=== PATIENT | male | born 1970 | race Caucasian/White ===

== ENCOUNTER 2018-11-06 11:03 | Day surgery (SDC) | payer OTHER ==
[2018-10-30 16:59] VITALS: BMI 35.2
[2018-11-06] MEDS ORDERED: ROPIVACAINE HCL 0.5% 30ML VIAL ONE (11:46)
[2018-11-06] MEDS ORDERED: MIDAZOLAM HCL 2 MG/2 ML SINGLE DOSE VIAL ONE (11:46)
[2018-11-06] MEDS ORDERED: LIDOCAINE HCL/PF 2% SDV 5ML VIAL ONE (11:54)
[2018-11-06] MEDS ORDERED: DEXAMETHASONE SOD PHOSPHATE 4 MG/1 ML VIAL ONE (11:54)
[2018-11-06] MEDS ORDERED: ONDANSETRON 4 MG/2 ML VIAL ONE (11:54)
[2018-11-06] MEDS ORDERED: PROPOFOL 20 ML ONE ×2 (11:54→13:42)
[2018-11-06] MEDS ORDERED: ceFAZolin SODIUM 1 GM VIAL ONE (12:27)
[2018-11-06 14:49] VITALS: TEMP 97.9
[2018-11-06 15:15] VITALS: BP 125/79; PULSE 80
[2018-11-06] MEDS ORDERED: ONDANSETRON 4 MG/2 ML VIAL IVPUSH PRN (16:34)
[2018-11-06] MEDS ORDERED: ACETAMINOPHEN 325 MG TABLET (FP) PO PRN (16:34)
[2018-11-06] MEDS ORDERED: oxyCODONE HCL 5 MG TABLET PO PRN ×2 (16:34)
[2018-11-06] MEDS ORDERED: LACTATED RINGERS SOLUTION 1,000 ML IV SCH (16:45)
--- NOTE | 2018-11-07 09:59 | OP ---
DATE OF OPERATION: 11/06/2018 PREOPERATIVE DIAGNOSES: 1. Right shoulder rotator cuff tear. 2. Right shoulder labral tear. 3. Right shoulder impingement syndrome. POSTOPERATIVE DIAGNOSES: 1. Right shoulder rotator cuff tear. 2. Right shoulder labral tear. 3. Right shoulder impingement syndrome. OPERATIVE PROCEDURES: 1. Arthroscopic right shoulder rotator cuff repair. 2. Arthroscopic right shoulder subacromial decompression and anterior-inferior acromioplasty. 3. Right shoulder extensive glenohumeral joint debridement. SURGEON: Javier Cristobal MD RN RESIDENTIAL: ANASTASIA Smith ANESTHESIA: Regional. COMPLICATIONS: None. ESTIMATED BLOOD LOSS: Minimal. INDICATIONS FOR PROCEDURE: The patient is a 48-year-old male with the above findings, indicated for operative treatment. Risks, benefits, and alternatives were discussed with the patient at length. Proper informed consent was obtained. DESCRIPTION OF PROCEDURE: After proper identification of the patient and correct operative site, patient was brought to the operating room, placed supine on the OR table. All prominences were well padded. Sedation and regional anesthesia were given. Patient was placed in the beach chair position with all points of contact well padded and cervical midline position maintained throughout the procedure. The right upper extremity was prepped and draped in usual sterile fashion. Arthroscope was inserted through posterior, lateral, and anterior portals. All portals were made with a skin incision only with blunt dissection down to the joint capsule. Glenohumeral joint was observed and found to have significant synovitis which was debrided. Subscapularis was found to be intact. Anterior glenohumeral ligaments were found to be intact. The pouch was free of any loose bodies. There were no significant articular defects. There was moderate fraying of the anterior and superior labrum but no detachment of the biceps anchor. This was debrided. The biceps tendon was followed into its groove and found to have no significant tearing within the biceps tendon itself. There was also no significant tenosynovitis of this tendon. There was a complete tear of the anterior aspect of the supraspinatus tendon with significant partial tearing around this. This was debrided down to healthy tissue, and the greater tuberosity was prepared for repair. Arthroscope was then introduced in the subacromial space where a severe bursitis was noted, and this was debrided with mechanical shaver for subacromial decompression. The rotator cuff was then observed, and again, found to have a full-thickness tear measuring approximately 7 mm across, and then, there was significant partial-thickness rotator cuff tearing measuring greater than 50% anterior to posterior for about 2 cm. This was again debrided, and the greater tuberosity was further prepared. A [id number] rotator cuff repair was then performed using [employer] SpeedBridge kit. Two anchors were inserted medially along the articular margin. FiberTape suture was passed through the rotator cuff and crisscrossed with separate limbs and 4 total limbs being passed. These were then secured laterally with 2 further SwiveLock anchors, performing an excellent repair. This was a tension-free repair as the rotator cuff core inserter was mobile. Of note, we did repair the full-thickness tear and the partial-thickness tear aspects of this. Shoulder was taken through range of motion, and full range of motion was achieved. The wound was irrigated with saline and repaired with 5-0 nylon suture. Sterile dressings, sling, and ice machine were placed. Patient was brought to recovery room in stable condition. He tolerated the procedure well. Baljit Zurita, the commercial real estate assistant, was integral throughout the procedure. Procedure could not have been performed without a skilled operative commercial real estate assistant. Singh [id number]
== END 2018-11-06 15:10 | disposition home or self-care (01) ==
LOC: FASU 11:03
PROVIDERS: ATTEND Orthopaedic Surgery Hand Surgery
PROC: 0RNJ4ZZ Release Right Shoulder Joint, Percutaneous Endoscopic Approach (ICD-10-PCS; 2018-11-06)
PROC: 0RBJ4ZZ Excision of Right Shoulder Joint, Percutaneous Endoscopic Approach (ICD-10-PCS; 2018-11-06)
PROC: 0LQ14ZZ Repair Right Shoulder Tendon, Percutaneous Endoscopic Approach (ICD-10-PCS; principal; 2018-11-06 12:48)
DX: M75.101 Unspecified rotator cuff tear or rupture of right shoulder, not specified as traumatic (principal); M24.111 Other articular cartilage disorders, right shoulder; M75.41 Impingement syndrome of right shoulder